=== PATIENT | male | born 1940 | race Caucasian/White ===

== ENCOUNTER 2025-04-11 14:28 | Emergency (ER) | payer OTHER, SELFPAY ==
[2025-04-11 14:36] VITALS: BP 136/65
--- NOTE | 2025-04-11 15:37 | ED.GENMED ---
History of Present Illness
General
Chief Complaint: Insect Sting
Source: patient
Exam Limitations: none
Time Seen by Provider: 04/11/25 15:29
History of Present Illness
History of Present Illness:
85-year-old male otherwise fairly healthy presents with multiple stings from josefa earlier today. Happened about an hour and a half prior to my exam. He denies shortness of breath or vomiting. He denies throat closing sensation. Close
localized stinging sensation over the bite sites. No prior documented history of allergic reactions to bee stings
Past History
Past History
ED Past Medical History: Cancer (Prostate cancer), Hypercholesterolemia and Other (Gout, [place] w/ aids)
ED Past Surgical History: Appendectomy and Orthopedic (Left carpal tunnel release January 2020)
Social History
Tobacco: Non-smoker
Alcohol: Occasional
Drug: None
Personal:
Living: with family
Employment: Retired
Family History
Family History: Other (Uncontributory)
Phy Exam
Physical Exam
Physical Exam:
General: Well appearing male NAD
HEENT: NC/AT no trismus or drooling no stridor posterior pharynx patent. Neck is supple
Heart: Regular rate and rhythm
Lungs: Clear no wheeze
Skin: Multiple areas of localized erythema and subtle swelling noted to the arms the face and the upper back these of the sites of each individual yellowjacket sting. There is no diffuse erythema
Extremities: No cyanosis
Course
Orders/Labs/Results
Orders:
Orders
04/11/25 15:36
Diphenhydramine [Benadryl] 25 mg PO NOW STA
Vital Signs
Initial and Last Documented VS:
Initial Vital Signs
Temp Pulse Resp BP Pulse Ox
97.1 F 71 20 136/65 100
04/11/25 14:36 04/11/25 14:36 04/11/25 14:36 04/11/25 14:36 04/11/25 14:36
Last Documented Vital Signs
Temp Pulse Resp BP Pulse Ox
97.1 F 71 20 136/65 100
04/11/25 14:36 04/11/25 14:36 04/11/25 14:36 04/11/25 14:36 04/11/25 15:39
MDM/Problems Addressed
Differential Diagnosis Includes:
Patient notes multiple yellowjacket stings. He states since arriving here the symptoms have improved. There is no respiratory distress. No known history of allergy to bee stings. Benadryl provided.
*Pulse Oximetry
SaO2: 100
Oxygen Mode of Delivery: Room air
Patient hypoxic: no
*Critical Care Note
Total Time (30-74mins, 75-104mins- exclusive of procedures): Not Applicable
Update Note
Update Note:
Patient observed for period time no further respiratory symptoms. Stable for discharge
ED Attending Note
-
Portions of this chart may have been created with voice recognition software.� Occasional wrong word or��sound alike� substitutions may have occurred due to the inherent limitations of voice recognition software.
Discharge Plan
Departure
Patient Disposition: Home (Routine Discharge)
Date of Disposition: 04/11/25
Time of Disposition: 16:56
Patient with high blood pressure during this ER visit?: No
Discharge Problem:
Insect stings
Instructions: Insect Bites and Stings (DC)
Prescriptions:
New
epinephrine [EpiPen] 0.3 mg/0.3 mL auto-injector
0.3 mg IM ONCE Qty: 1 0RF
No Action
indomethacin 25 MG capsule
25 mg PO TIDPRN PRN (Reason: PAIN) Qty: 30 0RF
hydrocodone-acetaminophen 5 MG/500 MG tablet
1 tab PO Q6HPRN PRN (Reason: PAIN) Qty: 20 0RF
hydrocodone-acetaminophen [Vicodin] 1 EACH tablet
1 - 2 ea PO Q4 PRN (Reason: pain) Qty: 15 0RF
colchicine 0.6 MG tablet
0.6 mg PO DAILY PRN (Reason: acute Gout attacks) Qty: 15 0RF
Rx Instructions:
take 1.2 mg for acute attack and then 0.6mg 1 hour later if needed.
indomethacin 25 MG capsule
50 mg PO TID PRN (Reason: Gout attack) Qty: 30 0RF
indomethacin 50 MG capsule
50 mg PO TID Qty: 20 1RF
hydrocodone-acetaminophen 1 TABLET tablet
1 tab PO Q4HPRN PRN (Reason: pain) Qty: 10 0RF
colchicine 0.6 MG capsule
0.6 mg PO PER PROTOCOL Qty: 1 0RF
Rx Instructions:
Take 1 hour after last dose.
hydrocodone-acetaminophen 1 TABLET tablet
1 tab PO Q4HPRN PRN (Reason: severe pain) Qty: 12 0RF
indomethacin 50 MG capsule
50 mg PO TIDPRN PRN (Reason: pain) Qty: 12 0RF
oxycodone-acetaminophen 5 MG/325 MG tablet
1 tab PO Q6HPRN PRN (Reason: pain) Qty: 8 0RF
diclofenac sodium 75 MG tablet,delayed release (DR/EC)
75 mg PO BID PRN (Reason: pain, take with food) Qty: 24 0RF
Referrals:
Jay Zamora MD [Family Provider, Internal Medicine]
Activity Restrictions/Additional Instructions:
Continue with Benadryl and cool compresses. Return if worse otherwise follow-up with your doctor
Interventions
Interventions:
*Risk Screen - Suicide Last Done: 04/11/25 14:42
*Neglect/Abuse Screening Last Done: 04/11/25 14:42
ED-Skin Assessment Last Done: 04/11/25 15:46
ED- Pulmonary Assessment Last Done: 04/11/25 15:46
Discharge Date and Time
Print Language: HONDURAN
[2025-04-11] MEDS: BENADRYL 25 MG PO (15:42)
[2025-04-11 17:19] VITALS: BP 123/65
== END 2025-04-11 17:28 | disposition home or self-care (01) ==
LOC: EMR 14:28
PROVIDERS: EMERGENCY PHYSICIAN Emergency Medicine; FAMILY PHYSICIAN Internal Medicine Geriatric Medicine
DX: T63.461A Toxic effect of venom of wasps, accidental (unintentional), initial encounter (principal); R22.0 Localized swelling, mass and lump, head; M79.89 Other specified soft tissue disorders; X58.XXXA Exposure to other specified factors, initial encounter; E78.00 Pure hypercholesterolemia, unspecified
CPT/HCPCS: 99283